=== PATIENT | male | born 1980 | race Caucasian/White ===

== ENCOUNTER 2021-10-23 14:49 | Emergency (ER) | payer BC, SELFPAY ==
[2021-10-23 14:56] VITALS: BP 109/84; PULSE 70; RESP 16; TEMP 36.3; O2SAT 100
--- NOTE | 2021-10-23 15:39 | ED.SKABFB ---
HPI - Skin/Abscess/Foreign Bdy General Chief complaint: Skin/Abscess/Foreign Body Stated complaint: thinks shonda is burrowed in left leg Time Seen by Provider: 10/23/21 15:28 Source: patient and RN notes reviewed Mode of arrival: ambulatory Limitations: no limitations History of Present Illness HPI narrative: Patient presents today complaining of possible spider bite to his left upper leg x3 days that has been getting larger. Denies fever or red streaking. Currently pain-free. He has tried no [id number] interventions prior to arrival. MD complaint: insect bite/sting Related Data Allergies Allergy/AdvReac Type Severity Reaction Status Date / Time No Known Allergies Allergy Verified 10/23/21 15:03 Review of Systems Review of Systems: CONSTITUTIONAL: Denies body aches, fever, chills, or sweats. EYES: Denies visual changes, redness, or discharge. ENT: Denies rhinorrhea, congestion, sore throat, or otalgia. CARDIOVASCULAR: Denies chest pain, palpitations, or edema. RESPIRATORY: Denies cough or dyspnea. GASTROINTESTINAL: Denies abdominal pain, nausea, vomiting, or diarrhea. GENITOURINARY: Denies dysuria or hematuria. SKIN: Denies rash, itching. + Spider bite to left upper leg MUSCULOSKELETAL: Denies back pain, joint pain, or myalgia. NEUROLOGIC: Denies headache, numbness, tingling, or weakness. PSYCH: Denies depression or anxiety. PMFSH Family History Family History Father Diabetes mellitus Hypertension Cerebrovascular accident Mother Hypertension Family history of malignant neoplasm of breast in first degree relative Sibling Cerebrovascular accident Social History Social History Smoking status: Never smoker Second hand tobacco smoke exposure: No Alcohol intake: current Comments At time of signature, I have reviewed and agree with nursing past medical, surgical, social and family history unless otherwise noted. Please see nursing chart for further information. There is no relevant family history pertinent to the presenting complaint Exam Narrative: GENERAL: Well-appearing, well-nourished, and in no acute distress. HEAD: Normocephalic, atraumatic. EYES: EOMI. No redness or drainage. Conjunctivae normal. ENT: Mucous membranes pink and moist. NECK: Normal AROM. CHEST: No respiratory distress. EXTREMITIES: Normal range of motion. No edema. SKIN: Warm, dry, no rash. Capillary refill normal. Normal skin turgor. 6 x 8 cm area of erythema to the left medial upper leg with 1.5 cm round area of induration with small scab in the center. Nontender to palpation. No red streaking noted. No fluctuance noted. NEURO: No focal deficits. Alert and oriented x3. Gait steady. PSYCH: Normal affect. No signs of depression or anxiety. Course Course Level of Care: Express Care Visit Vital Signs Vital signs: Vital Signs Temperature 97.3 F L 10/23/21 14:56 Pulse Rate 70 10/23/21 14:56 Respiratory Rate 16 10/23/21 14:56 Blood Pressure 109/84 10/23/21 14:56 Pulse Oximetry 100 10/23/21 14:56 Temperature 97.3 F L 10/23/21 14:56 Pulse Rate 70 10/23/21 14:56 Respiratory Rate 16 10/23/21 14:56 Blood Pressure 109/84 10/23/21 14:56 Pulse Oximetry 100 10/23/21 14:56 Reviewed. Pt has been instructed to follow up with his PCP regarding his elevated blood pressure today. Procedures Abscess I/D lower extremity: Date of Incision: 10/23/21 Time of Incision: 15:42 Side (if applicable): left (Upper leg) Local Anesthetic: none Technique: other (18-gauge needle tip) Irrigation: No Packing used?: none I&D Results: Blood Abcess I&D Additional Comments: Dressed with Band-Aid MDM - Skin/Abscess/Foreign Bdy Differential Diagnosis Differential diagnosis: Likely abscess of skin or subcutaneous tissue, cellulitis
== END 2021-10-23 15:46 | disposition home or self-care (01) ==
PROVIDERS: Emergency Provider Nurse Practitioner; PCP Family Medicine
DX: L02.416 Cutaneous abscess of left lower limb (principal); L03.116 Cellulitis of left lower limb; Z85.028 Personal history of other malignant neoplasm of stomach
CPT/HCPCS: 10060; 99203; G0463